=== PATIENT | female | born 1965 | race Caucasian/White ===

== ENCOUNTER 2019-12-20 13:51 | Inpatient (IN) | payer SELFPAY ==
[~2019-12-20] VITALS: Ht 165.1 cm; Wt 75.1 kg
[2019-12-20 14:20] LABS: BASO # 0.1 x10^3/uL (0.0-0.2); BASO % 1 % (0-3); EOS % 0 % (0-3); HEMATOCRIT 43.6 % (36.0-47.0); LYMPH % 28 % (24-48); MEAN CORPUSCULAR HEMOGLOBIN 32 pg (25-35); MEAN CORPUSCULAR HGB CONC 34 g/dL (31-37); MEAN CORPUSCULAR VOLUME 94 fL (79-100); MONO # 0.3 x10^3/uL (0.0-1.1); MONO % 4 % (0-9); NEUT % 68 % (31-73); PLATELET COUNT 243 x10^3/uL (140-400); RED BLOOD COUNT 4.65 x10^6/uL (3.50-5.40); RED CELL DISTRIBUTION WIDTH 13.2 % (11.5-14.5); WHITE BLOOD COUNT 7.3 x10^3/uL (4.0-11.0)
[2019-12-20 14:27] LABS: PROTHROMBIN TIME PATIENT 12.4 SEC (11.7-14.0)
[2019-12-20 14:35] LABS: CALCIUM 8.9 mg/dL (8.5-10.1); CREATININE 0.9 mg/dL (0.6-1.0); GFR 65.5; POTASSIUM 3.5 mmol/L (3.5-5.1)
--- NOTE | 2019-12-20 14:38 | RAD ---
EXAM: CHEST 1 VIEW History: Chest pain COMPARISON: None available. TECHNIQUE: Single portable radiograph of the chest FINDINGS: The cardiac silhouette is unremarkable. The lungs are clear bilaterally. The costophrenic sulci are clear and well demarcated. IMPRESSION: No radiographic evidence of an acute cardiopulmonary process. Electronically signed by: Amando Mike MD (12/20/2019 2:35 PM) [id number]
[2019-12-20 14:40] LABS: ALBUMIN 3.8 g/dL (3.4-5.0); DIRECT BILIRUBIN 0.1 mg/dL (0.0-0.2); TOTAL BILIRUBIN 0.3 mg/dL (0.2-1.0); TOTAL PROTEIN 7.7 g/dL (6.4-8.2)
--- NOTE | 2019-12-20 14:47 | PHYS DOC ---
Past Medical History Past Medical History: Other Additional Past Medical Histor: SEASONAL ALLERGIES Past Surgical History: No Surgical History Smoking Status: Current Every Day Smoker Alcohol Use: Occasionally General Adult EDM: Chief Complaint: CHEST PAIN HPI: HPI: Patient is a 54 year old female who presents with this morning when she awoke she began having right shoulder pain that was sharp and radiating to her mid chest. She states that nothing makes this pain feel worse or better. She states she went to urgent care and did not want to go through with the whole work-up that they wanted to do and went home. She states that the pain had gotten better. She states that when she was at home the pain came back and was worse and she took 4 baby aspirin. She states by time she got here to the ED her pain is 1 out of 10 and continues to be a 1 out of 10. She states she really has no pain. She states that she did have some nausea and chills this morning. The only history patient has a seasonal allergies. She states she has no primary care provider. She has a smoker. She states that she takes no medications daily. Patient denies vomiting, shortness of breath, headache, dizz iness, syncope, fever, dysuria, vision changes, numbness or tingling, abdominal pain, constipation, diarrhea. She states that her right arm just feels weird she states is not numbness or tingling she says just "feels different." Patient denies any focal weakness. Review of Systems: Review of Systems: Constitutional: Denies fever. + chills. [] Eyes: Denies change in visual acuity. [] HENT: Denies nasal congestion or sore throat. [] Respiratory: Denies cough or shortness of breath. [] Cardiovascular: sharp mid chest pain or denies edema. [] GI: Denies abdominal pain. +nausea,denies vomiting, bloody stools or diarrhea. [] : Denies dysuria. [] Musculoskeletal: Denies back pain. Sharp radiating Right shoulder joint pain. [] Integument: Denies rash. [] Neurologic: Denies headache, focal weakness or sensory changes. [] Endocrine: Denies polyuria or polydipsia. [] Lymphatic: Denies swollen glands. [] Psychiatric: Denies depression or anxiety. [] Heart Score: HEART Score for Chest Pain: HEART Score for Chest Pain Response (Comments) Value History Slighlty/Non-Suspicious 0 ECG Normal 0 Age >45 - < 65 1 Risk Factors 1 or 2 Risk Factors 1 Troponin < Normal Limit 0 Total 2 Risk Factors: Risk Factors: DM, Current or recent (<one month) smoker, HTN, HLP, family hi story of CAD, obesity. Risk Scores: Score 0 - 3: 2.5% MACE over next 6 weeks - Discharge Home Score 4 - 6: 20.3% MACE over next 6 weeks - Admit for Clinical Observation Score 7 - 10: 72.7% MACE over next 6 weeks - Early Invasive Strategies Allergies: Allergies: Allergies Coded Allergies Type Severity Reaction Last Updated Verified No Known Drug Allergies 12/20/19 No Physical Exam: PE: Constitutional: Well developed, well nourished, no acute distress, non-toxic appearance. [] HENT: Normocephalic, atraumatic, bilateral external ears normal, oropharynx moist, no oral exudates, nose normal. [] Eyes: PERRLA, EOMI, conjunctiva normal, no discharge. [] Neck: Normal range of motion, no tenderness, supple, no stridor. [] Cardiovascular:Heart rate regular rhythm, no murmur [] Lungs & Thorax: Bilateral breath sounds clear to auscultation [] Abdomen: Bowel sounds normal, soft, no tenderness, no masses, no pulsatile masses. [] Skin: Warm, dry, no erythema, no rash. [] Back: No tenderness, no CVA tenderness. [] Extremities: No tenderness, no cyanosis, no clubbing, ROM intact, no edema. [] Neurologic: Alert and oriented X 3, normal motor function, normal sensory function, no focal deficits noted. [] Psychologic: Affect normal, judgement normal, mood normal. Normal physical exam [] Current Patient Data: Labs: Laboratory Tests Test 12/20/19 14:08 White Blood Count 7.3 x10^3/uL (4.0-11.0) Red Blood Count 4.65 x10^6/uL (3.50-5.40) Hemoglobin 15.0 g/dL (12.0-15.5) Hematocrit 43.6 % (36.0-47.0) Mean Corpuscular Volume 94 fL (79-100) Mean Corpuscular Hemoglobin 32 pg (25-35) Mean Corpuscular Hemoglobin Concent 34 g/dL (31-37) Red Cell Distribution Width 13.2 % (11.5-14.5) Platelet Count 243 x10^3/uL (140-400) Neutrophils (%) (Auto) 68 % (31-73) Lymphocytes (%) (Auto) 28 % (24-48) Monocytes (%) (Auto) 4 % (0-9) Eosinophils (%) (Auto) 0 % (0-3) Basophils (%) (Auto) 1 % (0-3) Neutrophils # (Auto) 5.0 x10^3/uL (1.8-7.7) Lymphocytes # (Auto) 2.0 x10^3/uL (1.0-4.8) Monocytes # (Auto) 0.3 x10^3/uL (0.0-1.1) Eosinophils # (Auto) 0.0 x10^3/uL (0.0-0.7) Basophils # (Auto) 0.1 x10^3/uL (0.0-0.2) Prothrombin Time 12.4 SEC (11.7-14.0) Prothrombin Time INR 1.0 (0.8-1.1) Activated Partial Thromboplast Time 30 SEC (24-38) Sodium Level 140 mmol/L (136-145) Potassium Level 3.5 mmol/L (3.5-5.1) Chloride Level 103 mmol/L (98-107) Carbon Dioxide Level 30 mmol/L (21-32) Anion Gap 7 (6-14) Blood Urea Nitrogen 9 mg/dL (7-20) Creatinine 0.9 mg/dL (0.6-1.0) Estimated GFR (Cockcroft-Gault) 65.5 Glucose Level 109 mg/dL (70-99) H Calcium Level 8.9 mg/dL (8.5-10.1) Total Bilirubin Pending Direct Bilirubin Pending Aspartate Amino Transferase (AST) Pending Alanine Aminotransferase (ALT) Pending Alkaline Phosphatase Pending Total Protein Pending Albumin Pending Lipase Pending Laboratory Tests 12/20/19 14:08 Laboratory Tests 12/20/19 14:08 Vital Signs: Vital Signs Date Time Temp Pulse Resp B/P (MAP) Pulse Ox O2 Delivery O2 Flow Rate FiO2 7/17/20 14:07 98.1 71 16 154/80 (104) 96 Room Air 98.1 EKG: EK and read by Dr. Guerrero as sinus rhythm but inverted T waves and no STEMI [address] Guerrero with Sinus Rhythm but T waves have now flipped, no STEMI[] Radiology/Procedures: Radiology/Procedures: [] Impression: [facility] [address] [place] [address] IMAGING REPORT Signed PATIENT: ANJUM VINSON LACCOUNT: [id number] : 1965 LOCATION: ER AGE: 54 SEX: F EXAM STATUS: PRE ER ORD. PHYSICIAN: LAUREEN GUERRERO MD REASON: chest pain, nausea since this A.M. PROCEDURE: CHEST AP ONLY EXAM: CHEST 1 VIEW History: Chest pain COMPARISON: None available. TECHNIQUE: Single portable radiograph of the chest FINDINGS: The cardiac silhouette is unremarkable. The lungs are clear bilaterally. The costophrenic sulci are clear and well demarcated. IMPRESSION: No radiographic evidence of an acute cardiopulmonary process. Electronically signed by: Amando Mike MD (12/20/2019 2:35 PM) [id number] DICTATED and SIGNED BY: AMANDO MIKE MD DATE: 12/20/19 1435 Course & Med Decision Making: Course & Med Decision Making Pertinent Labs and Imaging studies reviewed. (See chart for details) Alert and oriented. Speaks in full complete sentences. Ambulatory with a steady gait. Skin pink warm and dry. EKG shows sinus rhythm and no STEMI. No extremity edema. Vital signs are within normal limits. She currently has no nausea and again she only has a 1 out of 10 chest pain. She states that the aspirin made it feel better. She states she was not doing anything strenuous she was just making her morning coffee when it all started this morning. I could not reproduce the pain with palpation over the chest. The pain is not reproduced when she moves her arms. Blood work unremarkable. Vital signs are unremarkable. Patient states she no longer has chest pain. Have explained to the patient that we will do a 3-hour troponin and a re-check EKG and if that is normal I will send her home with follow-up with a construction controller and resources for primary care provider. Patient agrees to this. On reexamination of second EKG the patient's lead I and lead aVL have flipped. Initially the T waves were inverted and now are normal. Given the dynamic changes in the patient's EKG we will admit the patient for telemetry monitoring and cardiology consultation. [] Dragon Disclaimer: Dragon Disclaimer: This electronic medical record was generated, in whole or in part, using a voice recognition dictation system. Departure Departure Impression: Primary Impression: Chest pain Qualified Codes: R07.9 - Chest pain, unspecified Disposition: ADMITTED INPATIENT Admitting Physician: JOSHUA Condition: STABLE Justicifation of Admission Dx: Justifications for Admission: Justification of Admission Dx: Yes Comments: ekg change KATRINA ORDONEZ PLANER OFFBEARER Dec 20, 2019 14:47
[2019-12-20] MEDS ORDERED: NITROGLYCERIN SUBLINGUAL 0.4 MG BOTTLE OF 25. SL PRN ×2 (15:00→17:45)
[2019-12-20] MEDS ORDERED: ONDANSETRON PF 4 MG/2 ML VIAL. IV PRN (17:45)
[2019-12-20] MEDS ORDERED: fentaNYL PF VIAL 100 MCG/2 ML VIAL IV PRN (17:45)
[2019-12-20 20:43] VITALS: BP 139/85
[2019-12-20] MEDS ORDERED: CETI10TA74 PO (20:46)
[2019-12-20] MEDS ORDERED: IBUP-1027 PO (20:46)
[2019-12-20] MEDS ORDERED: ASPI-630 PO (20:46)
--- NOTE | 2019-12-20 21:20 | PDOC1 ---
History and Physical Date of Admission Date of Admission DATE: 12/20/19 TIME: 21:13 Identification/Chief Complaint Chief Complaint chest pain Problems: (1) Chest pain Source Source: Chart review, Patient History of Present Illness History of Present Illness 54 year old female hx of tobacco use otherwise no significant PMhx, no PCP who presents with new onset chest pain since this AM. started as shoulder pain that radiated to mid chest. went to urgent care and didn't want to do further work up so went home. took a baby ASA which improved pain and symptoms. since no improvement came to ED for further eval. denies any other symptoms including chest pain, nausea vomiting diarrhea. no neurological symptoms. in ED found to have inverted T waves. trops negative. no prior ekg for [facility] called for admission and further eval. Past Medical History Past Medical History reviewed and denies Past Surgical History Past Surgical History reviewed and denies Family History Family History reviewed and denies Social History Smoke: <1 pack per day ALCOHOL: none Drugs: None Current Problem List Problem List Problems Medical Problems: (1) Chest pain Status: Acute Current Medications Current Medications Current Medications Nitroglycerin (Nitrostat) 0.4 mg PRN Q5MIN PRN SL CHEST PAIN; Start 12/20/19 at 15:00 Ondansetron HCl (Zofran) 4 mg PRN Q8HRS PRN IV NAUSEA/VOMITING; Start 12/20/19 at 17:45; Stop 12/21/19 at 17:44 Fentanyl Citrate (Fentanyl 2ml Vial) 50 mcg PRN Q1HR PRN IV PAIN; Start 12/20/19 at 17:45; Stop 12/21/19 at 17:44 Nitroglycerin (Nitrostat) 0.4 mg PRN Q5MIN PRN SL CHEST PAIN; Start 12/20/19 at 17:45; Stop 12/21/19 at 17:44 Active Scripts Active Reported Aspirin 81 Mg Tab.chew 81 Mg PO DAILY Ibuprofen 400 Mg Tablet 400 Mg PO PRN Q6HRS PRN Zyrtec (Cetirizine Hcl) 10 Mg Tablet 10 Mg PO DAILY Allergies Allergies: Coded Allergies: No Known Drug Allergies (Unverified , 12/20/19) ROS Review of System CONSTITUTIONAL: No fever or chills EYES: No recent changes SKIN: No rash or itching CARDIOVASCULAR: No chest pain, syncope, palpitations, or edema RESPIRATORY: No SOB or cough GASTROINTESTINAL: No nausea, vomiting or abdominal pain NEUROLOGICAL: No headaches or weakness ENDOCRINE: No cold or heat intolerance GENITOURINARY: No urgency or frequency of urination MUSCULOSKELETAL: No back pain or joint pain LYMPHATICS: No enlarged lymph nodes PSYCHIATRIC: No anxiety or depression Physical Exam Physical Exam GENERAL: No apparent distress. Alert and oriented. HEENT: Head normocephalic, atraumatic. NECK: Supple LUNGS: Clear to auscultation. HEART: RRR, S1, S2 present, pulses intact ABDOMEN: Soft, positive bowel sounds. EXTREMITIES: No cyanosis or edema. NEUROLOGIC: Normal speech, normal tone PSYCHIATRIC: Normal affect, normal mood. SKIN: No ulceration. Vitals Vitals Vital Signs Date Time Temp Pulse Resp B/P (MAP) Pulse Ox O2 Delivery O2 Flow Rate FiO2 12/20/19 20:43 98.7 71 20 139/85 (103) 94 Room Air 98.7 Labs Labs Laboratory Tests Test 12/20/19 14:08 12/20/19 16:52 White Blood Count 7.3 x10^3/uL (4.0-11.0) Red Blood Count 4.65 x10^6/uL (3.50-5.40) Hemoglobin 15.0 g/dL (12.0-15.5) Hematocrit 43.6 % (36.0-47.0) Mean Corpuscular Volume 94 fL (79-100) Mean Corpuscular Hemoglobin 32 pg (25-35) Mean Corpuscular Hemoglobin Concent 34 g/dL (31-37) Red Cell Distribution Width 13.2 % (11.5-14.5) Platelet Count 243 x10^3/uL (140-400) Neutrophils (%) (Auto) 68 % (31-73) Lymphocytes (%) (Auto) 28 % (24-48) Monocytes (%) (Auto) 4 % (0-9) Eosinophils (%) (Auto) 0 % (0-3) Basophils (%) (Auto) 1 % (0-3) Neutrophils # (Auto) 5.0 x10^3/uL (1.8-7.7) Lymphocytes # (Auto) 2.0 x10^3/uL (1.0-4.8) Monocytes # (Auto) 0.3 x10^3/uL (0.0-1.1) Eosinophils # (Auto) 0.0 x10^3/uL (0.0-0.7) Basophils # (Auto) 0.1 x10^3/uL (0.0-0.2) Prothrombin Time 12.4 SEC (11.7-14.0) Prothromb Time International Ratio 1.0 (0.8-1.1) Activated Partial Thromboplast Time 30 SEC (24-38) D-Dimer (Alba) < 0.27 ug/mlFEU Sodium Level 140 mmol/L (136-145) Potassium Level 3.5 mmol/L (3.5-5.1) Chloride Level 103 mmol/L (98-107) Carbon Dioxide Level 30 mmol/L (21-32) Anion Gap 7 (6-14) Blood Urea Nitrogen 9 mg/dL (7-20) Creatinine 0.9 mg/dL (0.6-1.0) Estimated GFR (Cockcroft-Gault) 65.5 Glucose Level 109 mg/dL (70-99) Calcium Level 8.9 mg/dL (8.5-10.1) Total Bilirubin 0.3 mg/dL (0.2-1.0) Direct Bilirubin 0.1 mg/dL (0.0-0.2) Aspartate Amino Transf (AST/SGOT) 16 U/L (15-37) Alanine Aminotransferase (ALT/SGPT) 20 U/L (14-59) Alkaline Phosphatase 99 U/L (46-116) Troponin I Quantitative < 0.017 ng/mL (0.000-0.055) < 0.017 ng/mL (0.000-0.055) BY-Fiq-J-Type Natriuretic Peptide 117 pg/mL (0-124) Total Protein 7.7 g/dL (6.4-8.2) Albumin 3.8 g/dL (3.4-5.0) Lipase 146 U/L (73-393) Laboratory Tests Test 12/20/19 14:08 12/20/19 16:52 White Blood Count 7.3 x10^3/uL (4.0-11.0) Red Blood Count 4.65 x10^6/uL (3.50-5.40) Hemoglobin 15.0 g/dL (12.0-15.5) Hematocrit 43.6 % (36.0-47.0) Mean Corpuscular Volume 94 fL (79-100) Mean Corpuscular Hemoglobin 32 pg (25-35) Mean Corpuscular Hemoglobin Concent 34 g/dL (31-37) Red Cell Distribution Width 13.2 % (11.5-14.5) Platelet Count 243 x10^3/uL (140-400) Neutrophils (%) (Auto) 68 % (31-73) Lymphocytes (%) (Auto) 28 % (24-48) Monocytes (%) (Auto) 4 % (0-9) Eosinophils (%) (Auto) 0 % (0-3) Basophils (%) (Auto) 1 % (0-3) Neutrophils # (Auto) 5.0 x10^3/uL (1.8-7.7) Lymphocytes # (Auto) 2.0 x10^3/uL (1.0-4.8) Monocytes # (Auto) 0.3 x10^3/uL (0.0-1.1) Eosinophils # (Auto) 0.0 x10^3/uL (0.0-0.7) Basophils # (Auto) 0.1 x10^3/uL (0.0-0.2) Prothrombin Time 12.4 SEC (11.7-14.0) Prothromb Time International Ratio 1.0 (0.8-1.1) Activated Partial Thromboplast Time 30 SEC (24-38) D-Dimer (Alba) < 0.27 ug/mlFEU Sodium Level 140 mmol/L (136-145) Potassium Level 3.5 mmol/L (3.5-5.1) Chloride Level 103 mmol/L (98-107) Carbon Dioxide Level 30 mmol/L (21-32) Anion Gap 7 (6-14) Blood Urea Nitrogen 9 mg/dL (7-20) Creatinine 0.9 mg/dL (0.6-1.0) Estimated GFR (Cockcroft-Gault) 65.5 Glucose Level 109 mg/dL (70-99) Calcium Level 8.9 mg/dL (8.5-10.1) Total Bilirubin 0.3 mg/dL (0.2-1.0) Direct Bilirubin 0.1 mg/dL (0.0-0.2) Aspartate Amino Transf (AST/SGOT) 16 U/L (15-37) Alanine Aminotransferase (ALT/SGPT) 20 U/L (14-59) Alkaline Phosphatase 99 U/L (46-116) Troponin I Quantitative < 0.017 ng/mL (0.000-0.055) < 0.017 ng/mL (0.000-0.055) JQ-Vuj-G-Type Natriuretic Peptide 117 pg/mL (0-124) Total Protein 7.7 g/dL (6.4-8.2) Albumin 3.8 g/dL (3.4-5.0) Lipase 146 U/L (73-393) VTE Prophylaxis Ordered VTE Prophylaxis Devices: Yes VTE Pharmacological Prophylaxi: Yes Assessment/Plan Assessment/Plan ASSESSMENT Chest pain rule out ACS Abnormal EKG with inverted T waves Tobacco Abuse PLAN admit to tele echo in AM TSH, lipids, a1c cards consult in AM dvt ppx full code Justicifation of Admission Dx: Justifications for Admission: Justification of Admission Dx: Yes Problem Qualifiers (1) Chest pain: Chest pain type: unspecified Qualified Codes: R07.9 - Chest pain, unspecified MORALES NARANJO MD Dec 20, 2019 21:20
[2019-12-20] MEDS ORDERED: IBUPROFEN 200 MG TABLET. PO PRN (21:30)
[2019-12-20 22:27] LABS: CHOLESTEROL/HDL RATIO 2.9
[2019-12-20 23:20] VITALS: BP 101/46
[2019-12-21 03:15] VITALS: BP 112/77
[2019-12-21 07:00] VITALS: BP 131/81
[2019-12-21] MEDS: NICOTINE 14MG PATCH. TD SCH (08:22)
--- NOTE | 2019-12-21 08:28 | PDOC ---
[facility] PROGRESS NOTE Chief Complaint Chief Complaint Chest pain rule out ACS Abnormal EKG with inverted T waves Tobacco Abuse PLAN Continue to monitor on telemetry Appreciate cardiology recommendations Plan for stress test tomorrow Pending echo TSH, lipids, a1c SCD for Dvt ppx full code History of Present Illness History of Present Illness 54 year old female hx of tobacco use otherwise no significant PMhx, no PCP who presents with new onset chest pain since this AM. started as shoulder pain that radiated to mid chest. went to urgent care and didn't want to do further work up so went home. took a baby ASA which improved pain and symptoms. since no improvement came to ED for further eval. denies any other symptoms including chest pain, nausea vomiting diarrhea. no neurological symptoms. in ED found to have inverted T waves. trops negative. no prior ekg for comparision 12/21/2019 No acute events overnight. Patient's pain has somewhat improved with aspirin and morphine. Patient is tolerating diet and ambulating without assistance. Vitals/I&O Vitals/I&O: Vital Signs Date Time Temp Pulse Resp B/P (MAP) Pulse Ox O2 Delivery O2 Flow Rate FiO2 12/21/19 07:00 99.0 67 15 131/81 (98) 97 Room Air 99.0 I & O 12/20/19 12/20/19 12/21/19 15:00 23:00 07:00 Intake Total 240 ml 400 ml Balance 240 ml 400 ml Physical Exam Physical Exam: GEN: No apparent distress. Alert and oriented HEENT: Normal cephalic, atraumatic, external auditory canals are patent NECK: Supple, no JVD, no thyromegaly was noted LUNGS: Bilateral crackles HEART: RRR, S1, S2 present. Peripheral pulses intact, no obvious murmurs noted ABDOMEN: Soft, nontender. Positive bowel sounds, no organomegaly, normal bowel sounds EXTREMITIES: Without clubbing, cyanosis, or edema. Pedal pulses intact. Negative Homans sign Labs Labs: Laboratory Tests Test 12/20/19 14:00 12/20/19 14:08 12/20/19 16:52 Triglycerides Level 50 mg/dL (0-150) Cholesterol Level 187 mg/dL (0-200) LDL Cholesterol, Calculated 113 mg/dL (0-100) VLDL Cholesterol, Calculated 10 mg/dL (0-40) Non-HDL Cholesterol Calculated 123 mg/dL (0-129) HDL Cholesterol 64 mg/dL (40-60) Cholesterol/HDL Ratio 2.9 Thyroid Stimulating Hormone (TSH) 1.169 uIU/mL (0.358-3.74) White Blood Count 7.3 x10^3/uL (4.0-11.0) Red Blood Count 4.65 x10^6/uL (3.50-5.40) Hemoglobin 15.0 g/dL (12.0-15.5) Hematocrit 43.6 % (36.0-47.0) Mean Corpuscular Volume 94 fL (79-100) Mean Corpuscular Hemoglobin 32 pg (25-35) Mean Corpuscular Hemoglobin Concent 34 g/dL (31-37) Red Cell Distribution Width 13.2 % (11.5-14.5) Platelet Count 243 x10^3/uL (140-400) Neutrophils (%) (Auto) 68 % (31-73) Lymphocytes (%) (Auto) 28 % (24-48) Monocytes (%) (Auto) 4 % (0-9) Eosinophils (%) (Auto) 0 % (0-3) Basophils (%) (Auto) 1 % (0-3) Neutrophils # (Auto) 5.0 x10^3/uL (1.8-7.7) Lymphocytes # (Auto) 2.0 x10^3/uL (1.0-4.8) Monocytes # (Auto) 0.3 x10^3/uL (0.0-1.1) Eosinophils # (Auto) 0.0 x10^3/uL (0.0-0.7) Basophils # (Auto) 0.1 x10^3/uL (0.0-0.2) Prothrombin Time 12.4 SEC (11.7-14.0) Prothromb Time International Ratio 1.0 (0.8-1.1) Activated Partial Thromboplast Time 30 SEC (24-38) D-Dimer (Alba) < 0.27 ug/mlFEU Sodium Level 140 mmol/L (136-145) Potassium Level 3.5 mmol/L (3.5-5.1) Chloride Level 103 mmol/L (98-107) Carbon Dioxide Level 30 mmol/L (21-32) Anion Gap 7 (6-14) Blood Urea Nitrogen 9 mg/dL (7-20) Creatinine 0.9 mg/dL (0.6-1.0) Estimated GFR (Cockcroft-Gault) 65.5 Glucose Level 109 mg/dL (70-99) Calcium Level 8.9 mg/dL (8.5-10.1) Total Bilirubin 0.3 mg/dL (0.2-1.0) Direct Bilirubin 0.1 mg/dL (0.0-0.2) Aspartate Amino Transf (AST/SGOT) 16 U/L (15-37) Alanine Aminotransferase (ALT/SGPT) 20 U/L (14-59) Alkaline Phosphatase 99 U/L (46-116) Troponin I Quantitative < 0.017 ng/mL (0.000-0.055) < 0.017 ng/mL (0.000-0.055) AL-Hxu-O-Type Natriuretic Peptide 117 pg/mL (0-124) Total Protein 7.7 g/dL (6.4-8.2) Albumin 3.8 g/dL (3.4-5.0) Lipase 146 U/L (73-393) Review of Systems Review of Systems: CONSTITUIONAL: Denies weight loss, fever and chills. HEENT: Denies changes in vision and hearing. RESPIRATORY: Denies SOB and cough. CV: Denies palpitations and CP. GI: Denies abdominal pain, nausea, vomiting and diarrhea. : Denies dysuria and urinary frequency. MSK: Denies myalgia and joint pain. SKIN: Denies rash and pruritus. NEUROLOGICAL: Denies headache and syncope. PSYCHIATRIC: Denies recent changes in mood. Denies anxiety and depression. Assessment and Plan Assessmemt and Plan Problems Medical Problems: (1) Chest pain Status: Acute Comment Review of Relevant I have reviewed the following items theodora (where applicable) has been applied. Medications: Current Medications Medications (Trade) Dose Ordered Sig/Kasie Route PRN Reason Start Time Stop Time Status Last Admin Dose Admin Ibuprofen (Motrin) 200 mg PRN Q6HRS PRN PO INFLAMMATION 12/20/19 21:30 12/20/19 21:48 Nicotine (Nicoderm Cq 14mg) 1 patch DAILY TD 12/21/19 09:00 12/21/19 08:22 Justicifation of Admission Dx: Justifications for Admission: Justification of Admission Dx: Yes NATA ATKINSON MD Dec 21, 2019 08:28
[2019-12-21 11:09] VITALS: BP 128/85
[2019-12-21] MEDS: ASPIRIN CHEWABLE 81 MG TABLET. PO SCH (11:09)
[2019-12-21] MEDS ORDERED: MORPHINE SULFATE 2 MG/ML VIAL. IV PRN (11:15)
[2019-12-21] MEDS ORDERED: ACETAMINOPHEN 325 MG TABLET. PO PRN (11:15)
--- NOTE | 2019-12-21 11:26 | EKG ---
[facility] [address] [place] [address] Test Date: 2019-12-21 Test Time: 11:18:11 Pat Name: ANJUM VINSON Department: Room: 648 1 Gender: F Remelter: CAROLS : 1965 Requested By: BAYRON VOSS Order Number: [id number] Reading MD: Measurements Intervals [place] Rate: 68 P: 131 CA: 146 QRS: 142 QRSD: 86 T: 136 QT: 384 QTc: 413 Interpretive Statements SINUS RHYTHM ABNORMAL RIGHT AXIS DEVIATION QRS(T) CONTOUR ABNORMALITY CONSISTENT WITH HIGH LATERAL INFARCT AGE UNDETERMINED ABNORMAL ECG RI6.02 No previous ECG available for comparison
--- NOTE | 2019-12-21 12:34 | PDOC2 ---
CONSULT Date of Consult Date of Consult DATE: 12/21/19 TIME: 12:30 Reason for Consult Reason for Consult: Chest pain Referring Physician Referring Physician: Dr. Gillespie Identification/Chief Complaint Chief Complaint Chest pain Source Source: Chart review, Patient History of Present Illness Reason for Visit: The patient is a 54-year-old female who reported to the emergency room yesterday for episodes of chest pain and mild nausea. Patient stated she has recurrent episodes of chest pressure and pain. This occurs sometimes at rest and sometimes with exertion. Chest x-ray showed no acute cardiopulmonary process. However on her EKG the patient had new T wave inversion. She has risk factors tobacco abuse. She has no documented history of coronary disease, congestive heart failure or cardiac arrhythmias. Overnight she reports continued episodes of occasional chest pain lasting up to 5 minutes. Past Medical History Cardiovascular: HTN Past Surgical History Past Surgical History: No pertinent history Family History Family History: Hypertension Social History <1 pack per day ALCOHOL: none Drugs: None Current Problem List Problem List Problems Medical Problems: (1) Chest pain Status: Acute Current Medications Current Medications Current Medications Nitroglycerin (Nitrostat) 0.4 mg PRN Q5MIN PRN SL CHEST PAIN; Start 12/20/19 at 15:00 Ondansetron HCl (Zofran) 4 mg PRN Q8HRS PRN IV NAUSEA/VOMITING Last administered on 12/21/19at 11:08; Start 12/20/19 at 17:45; Stop 12/21/19 at 17:44 Fentanyl Citrate (Fentanyl 2ml Vial) 50 mcg PRN Q1HR PRN IV PAIN; Start 12/20/19 at 17:45; Stop 12/21/19 at 17:44 Nitroglycerin (Nitrostat) 0.4 mg PRN Q5MIN PRN SL CHEST PAIN; Start 12/20/19 at 17:45; Stop 12/21/19 at 08:17; Status DC Ibuprofen (Motrin) 200 mg PRN Q6HRS PRN PO INFLAMMATION Last administered on 12/20/19at 21:48; Start 12/20/19 at 21:30 Nicotine (Nicoderm Cq 14mg) 1 patch DAILY TD Last administered on 12/21/19at 08:22; Start 12/21/19 at 09:00 Aspirin (Aspirin Chewable) 81 mg DAILY PO Last administered on 12/21/19at 11:09; Start 12/21/19 at 12:00 Acetaminophen (Tylenol) 650 mg PRN Q6HRS PRN PO pain; Start 12/21/19 at 11:15 Morphine Sulfate (Morphine Sulfate) 2 mg PRN Q2HR PRN IV PAIN; Start 12/21/19 at 11:15 Active Scripts Active Reported Aspirin 81 Mg Tab.chew 81 Mg PO DAILY Ibuprofen 400 Mg Tablet 400 Mg PO PRN Q6HRS PRN Zyrtec (Cetirizine Hcl) 10 Mg Tablet 10 Mg PO DAILY Allergies Allergies: Coded Allergies: No Known Drug Allergies (Unverified , 12/20/19) ROS Respiratory: YES: SOB with excertion Cardiovascular: yes Chest Pain Physical Exam General: No acute distress HEENT: Atraumatic Lungs: Clear to auscultation Heart: Regular rate Abdomen: Normal bowel sounds Vitals VITALS Vital Signs Date Time Temp Pulse Resp B/P (MAP) Pulse Ox O2 Delivery O2 Flow Rate FiO2 12/21/19 11:09 97.3 71 19 128/85 (99) 96 Room Air 97.3 Labs Labs Laboratory Tests Test 12/20/19 14:00 12/20/19 14:08 12/20/19 16:52 Triglycerides Level 50 mg/dL (0-150) Cholesterol Level 187 mg/dL (0-200) LDL Cholesterol, Calculated 113 mg/dL (0-100) VLDL Cholesterol, Calculated 10 mg/dL (0-40) Non-HDL Cholesterol Calculated 123 mg/dL (0-129) HDL Cholesterol 64 mg/dL (40-60) Cholesterol/HDL Ratio 2.9 Thyroid Stimulating Hormone (TSH) 1.169 uIU/mL (0.358-3.74) White Blood Count 7.3 x10^3/uL (4.0-11.0) Red Blood Count 4.65 x10^6/uL (3.50-5.40) Hemoglobin 15.0 g/dL (12.0-15.5) Hematocrit 43.6 % (36.0-47.0) Mean Corpuscular Volume 94 fL (79-100) Mean Corpuscular Hemoglobin 32 pg (25-35) Mean Corpuscular Hemoglobin Concent 34 g/dL (31-37) Red Cell Distribution Width 13.2 % (11.5-14.5) Platelet Count 243 x10^3/uL (140-400) Neutrophils (%) (Auto) 68 % (31-73) Lymphocytes (%) (Auto) 28 % (24-48) Monocytes (%) (Auto) 4 % (0-9) Eosinophils (%) (Auto) 0 % (0-3) Basophils (%) (Auto) 1 % (0-3) Neutrophils # (Auto) 5.0 x10^3/uL (1.8-7.7) Lymphocytes # (Auto) 2.0 x10^3/uL (1.0-4.8) Monocytes # (Auto) 0.3 x10^3/uL (0.0-1.1) Eosinophils # (Auto) 0.0 x10^3/uL (0.0-0.7) Basophils # (Auto) 0.1 x10^3/uL (0.0-0.2) Prothrombin Time 12.4 SEC (11.7-14.0) Prothromb Time International Ratio 1.0 (0.8-1.1) Activated Partial Thromboplast Time 30 SEC (24-38) D-Dimer (Alba) < 0.27 ug/mlFEU Sodium Level 140 mmol/L (136-145) Potassium Level 3.5 mmol/L (3.5-5.1) Chloride Level 103 mmol/L (98-107) Carbon Dioxide Level 30 mmol/L (21-32) Anion Gap 7 (6-14) Blood Urea Nitrogen 9 mg/dL (7-20) Creatinine 0.9 mg/dL (0.6-1.0) Estimated GFR (Cockcroft-Gault) 65.5 Glucose Level 109 mg/dL (70-99) Calcium Level 8.9 mg/dL (8.5-10.1) Total Bilirubin 0.3 mg/dL (0.2-1.0) Direct Bilirubin 0.1 mg/dL (0.0-0.2) Aspartate Amino Transf (AST/SGOT) 16 U/L (15-37) Alanine Aminotransferase (ALT/SGPT) 20 U/L (14-59) Alkaline Phosphatase 99 U/L (46-116) Troponin I Quantitative < 0.017 ng/mL (0.000-0.055) < 0.017 ng/mL (0.000-0.055) HC-Yrh-S-Type Natriuretic Peptide 117 pg/mL (0-124) Total Protein 7.7 g/dL (6.4-8.2) Albumin 3.8 g/dL (3.4-5.0) Lipase 146 U/L (73-393) Laboratory Tests Test 12/20/19 14:00 12/20/19 14:08 12/20/19 16:52 Triglycerides Level 50 mg/dL (0-150) Cholesterol Level 187 mg/dL (0-200) LDL Cholesterol, Calculated 113 mg/dL (0-100) VLDL Cholesterol, Calculated 10 mg/dL (0-40) Non-HDL Cholesterol Calculated 123 mg/dL (0-129) HDL Cholesterol 64 mg/dL (40-60) Cholesterol/HDL Ratio 2.9 Thyroid Stimulating Hormone (TSH) 1.169 uIU/mL (0.358-3.74) White Blood Count 7.3 x10^3/uL (4.0-11.0) Red Blood Count 4.65 x10^6/uL (3.50-5.40) Hemoglobin 15.0 g/dL (12.0-15.5) Hematocrit 43.6 % (36.0-47.0) Mean Corpuscular Volume 94 fL (79-100) Mean Corpuscular Hemoglobin 32 pg (25-35) Mean Corpuscular Hemoglobin Concent 34 g/dL (31-37) Red Cell Distribution Width 13.2 % (11.5-14.5) Platelet Count 243 x10^3/uL (140-400) Neutrophils (%) (Auto) 68 % (31-73) Lymphocytes (%) (Auto) 28 % (24-48) Monocytes (%) (Auto) 4 % (0-9) Eosinophils (%) (Auto) 0 % (0-3) Basophils (%) (Auto) 1 % (0-3) Neutrophils # (Auto) 5.0 x10^3/uL (1.8-7.7) Lymphocytes # (Auto) 2.0 x10^3/uL (1.0-4.8) Monocytes # (Auto) 0.3 x10^3/uL (0.0-1.1) Eosinophils # (Auto) 0.0 x10^3/uL (0.0-0.7) Basophils # (Auto) 0.1 x10^3/uL (0.0-0.2) Prothrombin Time 12.4 SEC (11.7-14.0) Prothromb Time International Ratio 1.0 (0.8-1.1) Activated Partial Thromboplast Time 30 SEC (24-38) D-Dimer (Alba) < 0.27 ug/mlFEU Sodium Level 140 mmol/L (136-145) Potassium Level 3.5 mmol/L (3.5-5.1) Chloride Level 103 mmol/L (98-107) Carbon Dioxide Level 30 mmol/L (21-32) Anion Gap 7 (6-14) Blood Urea Nitrogen 9 mg/dL (7-20) Creatinine 0.9 mg/dL (0.6-1.0) Estimated GFR (Cockcroft-Gault) 65.5 Glucose Level 109 mg/dL (70-99) Calcium Level 8.9 mg/dL (8.5-10.1) Total Bilirubin 0.3 mg/dL (0.2-1.0) Direct Bilirubin 0.1 mg/dL (0.0-0.2) Aspartate Amino Transf (AST/SGOT) 16 U/L (15-37) Alanine Aminotransferase (ALT/SGPT) 20 U/L (14-59) Alkaline Phosphatase 99 U/L (46-116) Troponin I Quantitative < 0.017 ng/mL (0.000-0.055) < 0.017 ng/mL (0.000-0.055) CI-Tig-K-Type Natriuretic Peptide 117 pg/mL (0-124) Total Protein 7.7 g/dL (6.4-8.2) Albumin 3.8 g/dL (3.4-5.0) Lipase 146 U/L (73-393) Images Images Chest x-ray with no acute process. Assessment/Plan Assessment/Plan 1. Chest pain. Initial presentation as above. Troponin negative x2. However the patient continues to have recurrent chest pain. T wave inversion is identified on the EKG and may be new. Chest x-ray shows no acute processes. Discussed various options with the patient. At this time in the setting of her recurrent pain and EKG changes will check a treadmill nuclear stress test to exclude underlying ischemia. Risk and benefits were discussed with the patient she has agreed to proceed. 2. Tobacco abuse. Counseled the patient on discontinuing smoking. 3. Unknown cholesterol level. Will check morning lab. Thank you for allowing us to participate in the care of your patient. BAYRON VOSS MD Dec 21, 2019 12:34
[2019-12-21 15:00] VITALS: BP 133/77
[2019-12-21 19:00] VITALS: BP 108/64
[2019-12-21 23:08] VITALS: BP 113/70
[2019-12-22 02:08] LABS: HEMOGLOBIN A1C 5.4 % (4.8-5.6)
[2019-12-22 03:50] VITALS: BP 105/67
[2019-12-22] MEDS: NICOTINE 14MG PATCH. TD SCH (04:16)
[2019-12-22 07:00] VITALS: BP 112/55
[2019-12-22] MEDS ORDERED: PERFLUTREN PROTEIN-A MICROSPHR 0.22 MG/ML 3 ML VIAL. IV ONE (09:16)
[2019-12-22] MEDS: ASPIRIN CHEWABLE 81 MG TABLET. PO SCH (10:30)
[2019-12-22 11:43] VITALS: BP 119/65
--- NOTE | 2019-12-22 12:09 | PDOC ---
[facility] [facility] PROGRESS NOTE Chief Complaint Chief Complaint Chest pain rule out ACS Abnormal EKG with inverted T waves Tobacco Abuse PLAN Continue to monitor on telemetry Appreciate cardiology recommendations Pending stress test today Pending echo results TSH, lipids, a1c SCD for Dvt ppx full code History of Present Illness History of Present Illness 54 year old female hx of tobacco use otherwise no significant PMhx, no PCP who presents with new onset chest pain since this AM. started as shoulder pain that radiated to mid chest. went to urgent care and didn't want to do further work up so went home. took a baby ASA which improved pain and symptoms. since no improvement came to ED for further eval. denies any other symptoms including chest pain, nausea vomiting diarrhea. no neurological symptoms. in ED found to have inverted T waves. trops negative. no prior ekg for comparision 12/22/2019 No acute events overnight. Patient seen and examined bedside. Patient has been chest pain-free. Patient has n.p.o. for stress test today. 12/21/2019 No acute events overnight. Patient's pain has somewhat improved with aspirin and morphine. Patient is tolerating diet and ambulating without assistance. Vitals/I&O Vitals/I&O: Vital Signs Date Time Temp Pulse Resp B/P (MAP) Pulse Ox O2 Delivery O2 Flow Rate FiO2 12/22/19 11:43 98.2 77 15 119/65 (83) 98 Room Air 98.2 I & O 12/21/19 12/21/19 12/22/19 15:00 23:00 07:00 Intake Total 240 ml 240 ml Balance 240 ml 240 ml Physical Exam Physical Exam: GEN: No apparent distress. Alert and oriented HEENT: Normal cephalic, atraumatic, external auditory canals are patent NECK: Supple, no JVD, no thyromegaly was noted LUNGS: Bilateral crackles HEART: RRR, S1, S2 present. Peripheral pulses intact, no obvious murmurs noted ABDOMEN: Soft, nontender. Positive bowel sounds, no organomegaly, normal bowel sounds EXTREMITIES: Without clubbing, cyanosis, or edema. Pedal pulses intact. Negative Homans sign General: No acute distress Heart: Regular rate Abdomen: Normal bowel sounds Review of Systems Review of Systems: CONSTITUIONAL: Denies weight loss, fever and chills. HEENT: Denies changes in vision and hearing. RESPIRATORY: Denies SOB and cough. CV: Denies palpitations and CP. GI: Denies abdominal pain, nausea, vomiting and diarrhea. : Denies dysuria and urinary frequency. MSK: Denies myalgia and joint pain. SKIN: Denies rash and pruritus. NEUROLOGICAL: Denies headache and syncope. PSYCHIATRIC: Denies recent changes in mood. Denies anxiety and depression. Assessment and Plan Assessmemt and Plan Problems Medical Problems: (1) Chest pain Status: Acute Comment Review of Relevant I have reviewed the following items theodora (where applicable) has been applied. Justicifation of Admission Dx: Justifications for Admission: Justification of Admission Dx: Yes NATA ATKINSON MD Dec 22, 2019 12:09
--- NOTE | 2019-12-22 12:24 | PDOC ---
PROGRESS NOTES Subjective Subjective Patient seen and examined Objective Objective Vital Signs Date Time Temp Pulse Resp B/P (MAP) Pulse Ox O2 Delivery O2 Flow Rate FiO2 12/22/19 11:43 98.2 77 15 119/65 (83) 98 Room Air 98.2 Intake and Output 12/22/19 07:00 Intake Total 480 ml Balance 480 ml Intake Oral 480 ml # Voids 1 Physical Exam Abdomen: Normal bowel sounds Heart: Regular rate General: No acute distress Lungs: Clear to auscultation Assessment Assessment Problems Medical Problems: (1) Chest pain Status: Acute 1. Chest pain. Initial presentation as above. Troponin negative x2. However the patient had continued chest pain. T wave inversion is identified on the EKG and may be new. Chest x-ray shows no acute processes. Stable overnight and feeling better. Continue present treatment. Nuclear stress test today. If negative for reversible ischemia patient may be discharged later today from a cardiac viewpoint. 2. Tobacco abuse. Counseled the patient on discontinuing smoking. 3. Unknown cholesterol level. Morning labs still pending. Comment Review of Relevant I have reviewed the following items theodora (where applicable) has been applied. Labs Laboratory Tests Test 12/20/19 14:00 12/20/19 14:08 12/20/19 16:52 Hemoglobin A1c 5.4 % (4.8-5.6) Triglycerides Level 50 mg/dL (0-150) Cholesterol Level 187 mg/dL (0-200) LDL Cholesterol, Calculated 113 mg/dL (0-100) VLDL Cholesterol, Calculated 10 mg/dL (0-40) Non-HDL Cholesterol Calculated 123 mg/dL (0-129) HDL Cholesterol 64 mg/dL (40-60) Cholesterol/HDL Ratio 2.9 Thyroid Stimulating Hormone (TSH) 1.169 uIU/mL (0.358-3.74) White Blood Count 7.3 x10^3/uL (4.0-11.0) Red Blood Count 4.65 x10^6/uL (3.50-5.40) Hemoglobin 15.0 g/dL (12.0-15.5) Hematocrit 43.6 % (36.0-47.0) Mean Corpuscular Volume 94 fL (79-100) Mean Corpuscular Hemoglobin 32 pg (25-35) Mean Corpuscular Hemoglobin Concent 34 g/dL (31-37) Red Cell Distribution Width 13.2 % (11.5-14.5) Platelet Count 243 x10^3/uL (140-400) Neutrophils (%) (Auto) 68 % (31-73) Lymphocytes (%) (Auto) 28 % (24-48) Monocytes (%) (Auto) 4 % (0-9) Eosinophils (%) (Auto) 0 % (0-3) Basophils (%) (Auto) 1 % (0-3) Neutrophils # (Auto) 5.0 x10^3/uL (1.8-7.7) Lymphocytes # (Auto) 2.0 x10^3/uL (1.0-4.8) Monocytes # (Auto) 0.3 x10^3/uL (0.0-1.1) Eosinophils # (Auto) 0.0 x10^3/uL (0.0-0.7) Basophils # (Auto) 0.1 x10^3/uL (0.0-0.2) Prothrombin Time 12.4 SEC (11.7-14.0) Prothromb Time International Ratio 1.0 (0.8-1.1) Activated Partial Thromboplast Time 30 SEC (24-38) D-Dimer (Alba) < 0.27 ug/mlFEU Sodium Level 140 mmol/L (136-145) Potassium Level 3.5 mmol/L (3.5-5.1) Chloride Level 103 mmol/L (98-107) Carbon Dioxide Level 30 mmol/L (21-32) Anion Gap 7 (6-14) Blood Urea Nitrogen 9 mg/dL (7-20) Creatinine 0.9 mg/dL (0.6-1.0) Estimated GFR (Cockcroft-Gault) 65.5 Glucose Level 109 mg/dL (70-99) Calcium Level 8.9 mg/dL (8.5-10.1) Total Bilirubin 0.3 mg/dL (0.2-1.0) Direct Bilirubin 0.1 mg/dL (0.0-0.2) Aspartate Amino Transf (AST/SGOT) 16 U/L (15-37) Alanine Aminotransferase (ALT/SGPT) 20 U/L (14-59) Alkaline Phosphatase 99 U/L (46-116) Troponin I Quantitative < 0.017 ng/mL (0.000-0.055) < 0.017 ng/mL (0.000-0.055) VQ-Ssn-B-Type Natriuretic Peptide 117 pg/mL (0-124) Total Protein 7.7 g/dL (6.4-8.2) Albumin 3.8 g/dL (3.4-5.0) Lipase 146 U/L (73-393) Medications Current Medications Nitroglycerin (Nitrostat) 0.4 mg PRN Q5MIN PRN SL CHEST PAIN; Start 12/20/19 at 15:00 Ondansetron HCl (Zofran) 4 mg PRN Q8HRS PRN IV NAUSEA/VOMITING Last administered on 12/21/19at 11:08; Start 12/20/19 at 17:45; Stop 12/21/19 at 1 7:44; Status DC Fentanyl Citrate (Fentanyl 2ml Vial) 50 mcg PRN Q1HR PRN IV PAIN; Start 12/20/19 at 17:45; Stop 12/21/19 at 17:44; Status DC Nitroglycerin (Nitrostat) 0.4 mg PRN Q5MIN PRN SL CHEST PAIN; Start 12/20/19 at 17:45; Stop 12/21/19 at 08:17; Status DC Ibuprofen (Motrin) 200 mg PRN Q6HRS PRN PO INFLAMMATION Last administered on 12/20/19at 21:48; Start 12/20/19 at 21:30; Stop 12/21/19 at 18:09; Status DC Nicotine (Nicoderm Cq 14mg) 1 patch DAILY TD Last administered on 12/22/19at 04:16; Start 12/21/19 at 09:00 Aspirin (Aspirin Chewable) 81 mg DAILY PO Last administered on 12/22/19at 10:30; Start 12/21/19 at 12:00 Acetaminophen (Tylenol) 650 mg PRN Q6HRS PRN PO pain; Start 12/21/19 at 11:15 Morphine Sulfate (Morphine Sulfate) 2 mg PRN Q2HR PRN IV PAIN; Start 12/21/19 at 11:15 Perflutren Protein Type A Microsphe (Optison) 0.66 mg STK-MED ONCE IV ; Start 12/22/19 at 09:16; Stop 12/22/19 at 09:17; Status DC Active Scripts Active Reported Aspirin 81 Mg Tab.chew 81 Mg PO DAILY Ibuprofen 400 Mg Tablet 400 Mg PO PRN Q6HRS PRN Zyrtec (Cetirizine Hcl) 10 Mg Tablet 10 Mg PO DAILY Vitals/I & O Vital Sign - Last 24 Hours 12/21/19 12/21/19 12/21/19 12/21/19 15:00 19:00 20:00 23:08 Temp 98.0 98.3 98.1 98.0 98.3 98.1 Pulse 72 76 78 Resp 17 18 18 B/P (MAP) 133/77 (95) 108/64 (79) 113/70 (84) Pulse Ox 97 97 98 O2 Delivery Room Air Room Air Room Air Room Air 12/22/19 12/22/19 12/22/19 12/22/19 03:50 07:00 08:00 11:43 Temp 98.2 98.0 98.2 98.2 98.0 98.2 Pulse 82 79 77 Resp 17 16 15 B/P (MAP) 105/67 (80) 112/55 (74) 119/65 (83) Pulse Ox 98 97 98 O2 Delivery Room Air Room Air Room Air Room Air Intake and Output 12/21/19 12/21/19 12/22/19 15:00 23:00 07:00 Intake Total 240 ml 240 ml Balance 240 ml 240 ml Justicifation of Admission Dx: Justifications for Admission: Justification of Admission Dx: Yes BAYRON VOSS MD Dec 22, 2019 12:24
--- NOTE | 2019-12-22 14:31 | DISCH ---
DISCHARGE INSTRUCTIONS Condition on Discharge Condition on Discharge: Stable Activity After Discharge Activity Instructions for Disc: No restrictions Diet after Discharge Diet after Discharge: Cardiac Contacting the DR. after DC Call your doctor for: If your condition worsens Follow-Up Follow up with: Follow-up with your PCP within 1 week of discharge Follow Up With: Follow-up with cardiology regarding your stress test results NATA ATKINSON MD Dec 22, 2019 14:31
--- NOTE | 2019-12-22 15:41 | RAD ---
MR#: [id number] Date of Study: 12/22/2019 Ordering Physician: BAYRON PRIETO, Referring Physician: YAEL AGUIRRE Tech: KERI Mello ARRT (R) (N) APPROVED REPORT Test Type: Exercise Stress Nurse/Tech: Sara Giles R.N. Test Indications: C/p Cardiac History: smoker Medications: See Electronic Medical Record Medical History: See Electronic Medical Record Resting ECG: SR Resting Heart Rate: 83 bpm Resting Blood Pressure: 119/67mmHg Pretest Chest Pain: No chest pain Nurse/Tech Notes S1S2, lungs CTA Consent: The procedure was explained to the patient in lay terms. Informed consent was witnessed. Danial eout was entered into Functional Neuromodulation. History and Stress Test performed by KERI Mello ARRT (R) (N) Stress Symptoms general fatigue POST EXERCISE Reason for Termination: Reached target heart rate Target HR: Yes Max HR: 149 bpm 89% of Maximum Predicted HR: 167 bpm Exercise duration: 7:51 min:sec, Stage Exercise capacity: 10METs Max Blood Pressure: 166/72mmHg Blood Pressure response to exercise: Normal blood pressure response during stress. Heart Rate response to exercise: wnl Chest Pain: No. Arrhythmia: No. 2 pvcs noted at the end of exercise INTERPRETATION Stress EKG Conclusion: The resting EKG showed a sinus rhythm with nonspecific ST-T wave changes. There were no significant EKG changes with exertion. No EKG evidence of stress-induced ischemia. Imaging Protocol IMAGE PROTOCOL: Rest Tc-99m/stress Tc-99m 1 day Rest: Stress: Viability: Radiopharm.Tc99m [id number] Tetrofosmin Oteo74tMe 33mCi Img Date 12/22/2019 12/22/2019 Inj-Img Rpwc11dif. 45min. Rest Admin Site:IV - Right ForearmAdministrator:KERI Mello ARRT (R)(N) Stress Admin Site: IV - Right ForearmAdministrator: KERI Mello ARRT (Terrell)(N) STRESS DATA End Diast. Vol.86.0mlAv. Heart Rate80.0bpm End Syst. Vol.26.0mlCO Index BSA0.0L/min Myocardial Uzlv213.0gEject. Uwhtetnr11.0% Stress Rates Pk. Fill Rate3.13EDV/secLVtime Pk. Fill 218.70msec Pk. Empty Rate4.47ESV/secLVtime Pk. Whrns742.48msec 1/3 Pk. Fill1.70EDV/sec Stress Scores Regional WT0.00Summed WT0.00 Regional WM0.00Summed WM0.00 LV Perfusion The stress scans showed no significant defects. The rest scans showed no significant defects. Nuclear imaging showed no reversible ischemia or infarct. Wall Motion Normal left ventricular systolic function with an ejection fraction of 67%. LV Perf. Quant 17 Seg. SSS0.00 17 Seg. SRS0.00 17 Seg. SDS0.00 Stress Defect Extent (% LAD)0.00Rest Defect Extent (% LAD)0.00Rev. Defect Extent (% LAD)0.00 Stress Defect Extent (% LCX) 0.00Rest Defect Extent (% LCX)0.00Rev. Defect Extent (% LCX)0.00 Stress Defect Extent (% RCA)0.00Rest Defect Extent (% RCA)0.00Rev. Defect Extent (% RCA)0.00 Stress Defect Extent (% GUILLERMO)0.00Rest Defect Extent (% GUILLERMO)0.00Rev. Defect Extent (% GUILLERMO)0.00 Conclusion 1. Good exercise tolerance. 2. No reported chest pain with exertion. 3. No EKG evidence of stress-induced ischemia. 4. Nuclear imaging shows no reversible ischemia or infarct. 5. Normal left ventricular systolic function with an ejection fraction of 67%. 6. Low risk treadmill nuclear stress test. Signed by : Bayron Prieto MD Electronically Approved : 12/22/2019 15:40:56
--- NOTE | 2019-12-22 15:42 | CARD ---
MR#: [id number] Date of Study: 12/22/2019 Ordering Physician: MORALES NARANJO, Referring Physician: Tracey HUNT: Mily Valdes [facility] APPROVED REPORT EXAM: Two-dimensional and M-mode echocardiogram with Doppler and color Doppler. Other Information Quality : AverageHR: 71bpm Rhythm : NSR INDICATION Dyspnea 2D DIMENSIONS Left Atrium(2D)3.1 (1.6-4.0cm)IVSd1.0 (0.7-1.1cm) Aortic Root(2D)3.5 (2.0-3.7cm)LVDd4.7 (3.9-5.9cm) LVOT Diameter2.1 (1.8-2.4cm)PWd1.0 (0.7-1.1cm) LA Hnqzsg22 (18-58mL) M-Mode DIMENSIONS LVEF(%)55 (>50%) LEFT VENTRICLE The left ventricle is normal size. There is normal left ventricular wall thickness. The left ventricu lar systolic function is normal and the ejection fraction is within normal range. Ejection fraction 5 0-55% There is normal LV segmental wall motion. The left ventricular diastolic function and filling i s normal for age. RIGHT VENTRICLE The right ventricle is normal size. There is normal right ventricular wall thickness. The right ventr icular systolic function is normal. ATRIA The left atrium size is normal. The right atrium size is normal. The interatrial septum is intact wit h no evidence for an atrial septal defect or patent foramen ovale as noted on 2-D or Doppler imaging. AORTIC VALVE The aortic valve is normal in structure and function. Doppler and Color Flow revealed no significant aortic regurgitation. There is no significant aortic valvular stenosis. MITRAL VALVE The mitral valve is normal in structure and function. There is no evidence of mitral valve prolapse. There is no mitral valve stenosis. Doppler and Color-flow revealed mild mitral regurgitation. TRICUSPID VALVE The tricuspid valve is normal in structure and function. Doppler and Color Flow revealed trace tricus pid regurgitation. Estimated PAP 17 mmHg. PULMONIC VALVE The pulmonary valve is normal in structure and function. Doppler and Color Flow revealed trivial pulm onic valvular regurgitation. GREAT VESSELS The aortic root is normal in size. Mildly dialated The pulmonary artery is normal. The IVC is normal in size and collapses >50% with inspiration. PERICARDIAL EFFUSION There is no evidence of significant pericardial effusion. Critical Notification Critical Value: No <Conclusion> The left ventricle is normal size. The left ventricular systolic function is normal and the ejection fraction is within normal range. E jection fraction 50-55% There is normal LV segmental wall motion. Doppler and Color Flow revealed no significant aortic regurgitation. There is no significant aortic valvular stenosis. Doppler and Color-flow revealed mild mitral regurgitation. Doppler and Color Flow revealed trace tricuspid regurgitation. Estimated PAP 17 mmHg. Signed by : Jose Prieto MD Electronically Approved : 12/22/2019 15:41:51
--- NOTE | 2019-12-22 16:55 | NUR ---
Discharge Note: ANJUM VINSON Discharge instructions and discharge home medications reviewed with Patient and a copy given. All questions have been answered and understanding verbalized. The following instructions and handouts were given: Patient given education regarding chest pain and follow ups. Discontinued lines and drains: Iv removed per protocol. Patient discharged home, picked up by family members.
--- NOTE | 2019-12-22 19:01 | PDOC3 ---
[facility]-Discharge Summary Date of Admission: Date of Admission: Dec 20, 2019 Date of Discharge: Date of Discharge: Dec 22, 2019 Admission Diagnosis: Admitting Diagnosis: Chest pain rule out ACS Abnormal EKG with inverted T waves Tobacco Abuse Discharge Diagnosis: Discharge Diagnosis: Chest pain rule out ACS Abnormal EKG with inverted T waves Tobacco Abuse Procedures: Procedures: treadmill stress test Hospital Course: Hospital Course: 54 year old female hx of tobacco use otherwise no significant PMhx, no PCP who presents with new onset chest pain since this AM. started as shoulder pain that radiated to mid chest. went to urgent care and didn't want to do further work up so went home. took a baby ASA which improved pain and symptoms. since no improvement came to ED for further eval. denies any other symptoms including chest pain, nausea vomiting diarrhea. no neurological symptoms. Patient was evaluted by cardiology and was planned for stress test. Stress test was completed and was normal. Please see procedural report for details. Patient was chest pain free on day of discharge. The rest of her hospital course was uneventful Disposition: Disposition/Orders: D/C to Home Activity: Activity: Resume previous activity Diet: Diet: Cardiac Medications: Home Meds Reported Medications Aspirin (ASPIRIN) 81 Mg Tab.chew, 81 MG PO DAILY for started today for chest pain, TAB.CHEW 12/20/19 Cetirizine Hcl (ZYRTEC) 10 Mg Tablet, 10 MG PO DAILY for allergies, TAB 12/20/19 Discontinued Reported Medications Ibuprofen (IBUPROFEN) 400 Mg Tablet, 400 MG PO PRN Q6HRS PRN for INFLAMMATION, TAB 12/20/19 Scheduled Aspirin (Aspirin), 81 MG PO DAILY, (Reported) Cetirizine Hcl (Zyrtec), 10 MG PO DAILY, (Reported) Discontinued Medications Ibuprofen (Ibuprofen), 400 MG PO PRN Q6HRS PRN for INFLAMMATION, (Reported) Total Time: Total Time: Total time spent was 25 mintues Justicifation of Admission Dx: Justifications for Admission: Justification of Admission Dx: Yes NATA ATKINSON MD Dec 22, 2019 19:01
--- NOTE | 2019-12-24 05:07 | EKG ---
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
--- NOTE | 2019-12-24 05:10 | EKG ---
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
== END 2019-12-22 16:00 | disposition home or self-care (01) | DRG 311 ==
LOC: ER 13:51 → 6 SOUTH 19:20
PROVIDERS: ADMIT Internal Medicine; ATTEND Internal Medicine
DX: I24.9 Acute ischemic heart disease, unspecified (principal); F17.210 Nicotine dependence, cigarettes, uncomplicated; I10 Essential (primary) hypertension; Z82.49 Family history of ischemic heart disease and other diseases of the circulatory system; Z79.899 Other long term (current) drug therapy; Z71.6 Tobacco abuse counseling
CPT/HCPCS: 36415; 71045; 78452; 80048; 80061; 80076; 83036; 83690; 83880; 84443; 84484; 85025; 85379; 85610; 85730; 93005; 93017; 93306; 96374; A9500; J2405; 99285-25; G0378